=== PATIENT | female | born 1985 | race Caucasian/White ===

== ENCOUNTER → 2016-07-17 | Outpatient (CLI) | payer OTHER ==
[2016-07-17 12:46] LABS: CHCM 34.4; HCT 33.7 % (34.0-46.0); HDW 2.71; HGB 11.6 gm/dL (11.4-16.0); MCH 32.1 pg (25.0-35.0); MCHC 34.2 g/dL (31.0-37.0); MCV 93.7 fL (80.0-100.0); Mean Platelet Volume 8.5; RDW 13.5 % (11.5-15.5); WBC 9.1 k/uL (3.8-10.6)
[2016-07-17 12:59] LABS: Non-African American GFR(MDRD) >60 (>60 ml/min/1.73 sqM)
[2016-07-17 13:30] LABS: Hepatitis B Surface Ag Index 0.05
[2016-07-19 04:39] LABS: HIV-1/HIV-2 Ab Screen NONREAC (NON REAC)
== END | disposition home or self-care (01) ==
LOC: LABWHC1 11:31
PROVIDERS: ATTEND Obstetrics & Gynecology
DX: O26.812 Pregnancy related exhaustion and fatigue, second trimester (principal); Z3A.00 Weeks of gestation of pregnancy not specified
CPT/HCPCS: 36415; 82565; 82950; 85027; 86762; 86780; 86850; 86900; 86901; 87340; 87389

== ENCOUNTER 2016-08-18 16:52 | Outpatient (CLI) | payer OTHER | END 2016-08-18 17:55 | disposition home or self-care (01) | LOC: FBPOP 16:52 | PROVIDERS: ATTEND Obstetrics & Gynecology | DX: O26.93 Pregnancy related conditions, unspecified, third trimester (principal); Z3A.37 37 weeks gestation of pregnancy | CPT/HCPCS: 59025 ==

== ENCOUNTER 2016-08-19 22:40 | Inpatient (IN) | payer OTHER ==
[2016-08-20] MEDS ORDERED: CARBOPROST TROMETHAMINE 250 MCG/ML 1 ML AMP IM PRN (03:40)
[2016-08-20] MEDS ORDERED: METHYLERGONOVINE 0.2 MG/ML 1 ML AMP IM PRN (03:40)
[2016-08-20] MEDS ORDERED: BUTORPHANOL 1 MG/ML 1 ML VIAL IV PRN (03:40)
[2016-08-20] MEDS ORDERED: OXYTOCIN 10 UNIT/ML 1 ML VIAL IM PRN (03:40)
[2016-08-20] MEDS ORDERED: LIDOCAINE 1% (PF) 10 MG/ML (30 ML SDV) SQ PRN (03:40)
[2016-08-20] MEDS ORDERED: TERBUTALINE 1 MG/ML VIAL SQ PRN (03:40)
[2016-08-20 03:49] VITALS: BMI 31.9
[2016-08-20 03:51] LABS: Basophils % (A) 0 %; CH 32.1; CHCM 35.4; Eosinophils # (A) 0.2 k/uL (0-0.7); Eosinophils % (A) 1 %; HCT 35.9 % (34.0-46.0); HGB 12.5 gm/dL (11.4-16.0); Luc # (Auto) 0.33; Luc % (Auto) 2; Lymphocytes # (A) 1.8 k/uL (1.0-4.8); Lymphocytes % (A) 11 %; MCH 31.7 pg (25.0-35.0); MCHC 34.8 g/dL (31.0-37.0); MCV 91.1 fL (80.0-100.0); Mean Platelet Volume 10.2; Monocytes # (A) 0.5 k/uL (0-1.0); Monocytes % (A) 3 %; Neutrophils # (A) 12.8 k/uL (1.3-7.7); Neutrophils % (A) 82 %; RBC 3.94 m/uL (3.80-5.40); RDW 13.5 % (11.5-15.5); WBC 15.6 k/uL (3.8-10.6); WBC (Perox) 16.02
[2016-08-20] MEDS: LACTATED RINGERS 1,000 ML IV SCH ×3 (03:53→06:32)
--- NOTE | 2016-08-20 06:21 | P.HPOB ---
History of Present Illness H&P Date: 08/20/16 Chief Complaint: Contractions This patient is a 31-year-old 4 para 3 female estimated date of confinement 09/07/2016 estimated gestational age 37-2/7 weeks who presented to labor and delivery complaining of contractions. It was watched and over several hours did have cervical change and therefore thought to be in active labor. care is per Dr. Jiang and appears to be complicated by late to seek care at 24 weeks and some noncompliance with doing her blood work. Patient also has a history of a 22 week intrauterine demise secondary to placental abruption. She does have 2 living children as well. Review of Systems Constitutional: Denies chills, Denies fever Ears, nose, mouth and throat: Denies headache, Denies sore throat Cardiovascular: Denies chest pain, Denies shortness of breath Respiratory: Denies cough Gastrointestinal: Reports heartburn Genitourinary: Reports Menstruation: Reports amenorrhea Musculoskeletal: Denies myalgias Integumentary: Denies pruritus, Denies rash Neurological: Denies numbness, Denies weakness Past Medical History Past Medical History: No Reported History History of Any Multi-Drug Resistant Organisms: None Reported Past Surgical History: Orthopedic Surgery Additional Past Surgical History / Comment(s): KNEE-LEFT Past Anesthesia/Blood Transfusion Reactions: No Reported Reaction Past Psychological History: No Psychological Hx Reported Smoking Status: Current every day smoker Past Alcohol Use History: None Reported Past Drug Use History: None Reported - Past Family History Father Family Medical History: No Reported History Medications and Allergies Home Medications Medication Instructions Recorded Confirmed Type Ranitidine HCl [Zantac] 150 mg PO HS PRN 08/18/16 08/19/16 History Allergies Allergy/AdvReac Type Severity Reaction Status Date / Time Penicillins Allergy Rash/Hives Verified 08/19/16 22:49 Exam - Vital Signs Vital signs: Vital Signs Temp Pulse Resp BP 08/19/16 22:56 98.3 F 89 18 131/62 Intake and Output 08/19/16 08/19/16 08/20/16 14:59 22:59 06:59 Other: Weight 76.657 kg 76.657 kg Patient Weight 08/20/16 06:59 Weight 76.657 kg - OBG Physical Exam Abdomen: bowel sounds normal, no diffuse tenderness, no bruit present, no guarding noted, no hepatomegaly, no splenomegaly, no mass Vulva: both: normal Vagina: normal moisture, no discharge Cervix: Cervix is 5-6 cm dilated 100% effaced. Uterus: enlarged (Fundal height is consistent with a term .) Results Blood type is A+. Result Diagrams: 08/20/16 03:40 Abnormal Lab Results - Last 24 Hours (Table) 08/20/16 Range/Units 03:40 WBC 15.6 H (3.8-10.6) k/uL Plt Count 138 L (150-450) k/uL Neutrophils # 12.8 H (1.3-7.7) k/uL Assessment and Plan (1) Third trimester Narrative/Plan: This is a-year-old 4 para 3 female 37-2/7 weeks gestation who is admitted to labor and delivery in active labor. I and is anticipate normal vaginal delivery. Patient apparently is up for adoption and bilingual social worker will be contacted. Status: Acute (2) Normal labor Status: Acute
[2016-08-20] MEDS ORDERED: BUPIVACAINE (PF) 0.25% 30 ML VIAL ONE (06:48)
[2016-08-20] MEDS ORDERED: fentaNYL (PF) 50 MCG/ML 5 ML AMP ONE (06:48)
[2016-08-20] MEDS ORDERED: SODIUM CHLORIDE 0.9% 100 ML BAG ONE (06:48)
[2016-08-20] MEDS ORDERED: OXYTOCIN 20 UNITS/1000 ML NS 1,000 ML IV SCH (09:44)
[2016-08-20] MEDS ORDERED: ZOLPIDEM 5 MG TAB PO PRN (11:17)
[2016-08-20] MEDS ORDERED: ACETAMINOPHEN TAB 325 MG TAB PO PRN (11:17)
[2016-08-20] MEDS ORDERED: diphenhydrAMINE 50 MG/ML 1 ML VIAL IVP PRN ×2 (11:17)
[2016-08-20] MEDS ORDERED: BENZOCAINE SPRAY 57GM TOPICAL PRN (11:17)
[2016-08-20] MEDS ORDERED: diphenhydrAMINE 25 MG CAP PO PRN (11:17)
[2016-08-20] MEDS ORDERED: SIMETHICONE 80 MG CHEWABLE PO PRN (11:17)
[2016-08-20] MEDS ORDERED: IBUPROFEN 600 MG TAB PO PRN (11:17)
[2016-08-20] MEDS ORDERED: WITCH HAZEL 1 EACH MED..PAD TOPICAL PRN (11:17)
[2016-08-20] MEDS ORDERED: Acetaminophen-Codeine 300-30mg TAB PO PRN ×2 (11:17)
[2016-08-20] MEDS ORDERED: HYDROCORTISONE 2.5% RECTAL CREAM 30 GM TUBE RECTAL PRN (11:17)
[2016-08-20] MEDS ORDERED: diphenhydrAMINE 50 MG CAP PO PRN (11:17)
[2016-08-20 11:47] VITALS: RESP 16
--- NOTE | 2016-08-20 17:06 | P.PROBDLV ---
Vaginal Delivery Note - . Vaginal Delivery Note: Breast complete and pushing with spontaneous vaginal delivery of a viable male over an intact perineum. Baby did deliver as I walked into the room. Once baby was delivered mouth nares were bulb suctioned and nursery personnel was present to assume care following clamping and cutting of the cord. Placenta was then delivered intact and Pitocin was added to the IV. Her scores were
[2016-08-20] MEDS: SENNOSIDES-DOCUSATE SODIUM 1 EACH TAB PO SCH (21:21)
[2016-08-21] MEDS: SENNOSIDES-DOCUSATE SODIUM 1 EACH TAB PO SCH (08:29)
[2016-08-21 09:30] LABS: Basophils % (A) 0 %; CH 32.3; CHCM 36.6; Eosinophils # (A) 0.2 k/uL (0-0.7); Eosinophils % (A) 2 %; HCT 33.8 % (34.0-46.0); HDW 2.96; HGB 12.1 gm/dL (11.4-16.0); Luc # (Auto) 0.35; Luc % (Auto) 3; Lymphocytes # (A) 1.7 k/uL (1.0-4.8); Lymphocytes % (A) 15 %; MCH 31.8 pg (25.0-35.0); MCHC 35.7 g/dL (31.0-37.0); Mean Platelet Volume 10.6; Monocytes # (A) 0.5 k/uL (0-1.0); Monocytes % (A) 5 %; Neutrophils # (A) 8.7 k/uL (1.3-7.7); Neutrophils % (A) 76 %; RDW 13.3 % (11.5-15.5); WBC 11.5 k/uL (3.8-10.6); WBC (Perox) 11.98
[2016-08-21 12:21] VITALS: BP 119/65; PULSE 87; TEMP 98.5
--- NOTE | 2016-08-21 12:24 | P.DS ---
Providers Date of admission: 08/20/16 03:39 Expected date of discharge: 08/21/16 Attending physician: Jose Jiang Primary care physician: Jose Jiang Hospital Course: Susan is doing very well day 1. She is involuting, voiding, and she is tolerating her diet. She voices no complaint. Vital signs are stable and afebrile. Heart regular, lungs clear, extremities without pain. Abdomen is soft uterus is firm and lochia is reported be light. Assessment day 1. Plan discharged home follow up with me in 4 weeks. We'll plan schedule first 2 ligation following that visit. All the questions are answered for her at this time discharge instructions reviewed and she requests nothing for pain to home with. Patient Condition at Discharge: Good Plan - Discharge Summary New Discharge Prescriptions: No Action Ranitidine HCl [Zantac] 150 mg PO HS PRN PRN Reason: acid reflux Discharge Medication List Ranitidine HCl [Zantac] 150 mg PO HS PRN 08/18/16 [History] Follow up Appointment(s)/Referral(s): Jose Jiang DO [Primary Care Provider] - 4 Weeks Activity/Diet/Wound Care/Special Instructions: No heavy lifting, limit stairs and driving, and pelvic rest. If any high temperatures, heavy bleeding, or severe pain call my office Discharge Disposition: HOME SELF-CARE
== END 2016-08-21 16:57 | disposition home or self-care (01) | DRG 775 ==
LOC: FBPOP 22:40 → 4FBP 08-20 03:39
PROVIDERS: ADMIT Obstetrics & Gynecology; ATTEND Obstetrics & Gynecology
PROC: 10E0XZZ Delivery of Products of Conception, External Approach (ICD-10-PCS; principal; 2016-08-20)
DX: O99.334 Smoking (tobacco) complicating childbirth (principal); Z37.0 Single live birth; Z3A.37 37 weeks gestation of pregnancy
CPT/HCPCS: 59025; 85025; 88307; 99213

== ENCOUNTER 2023-04-27 05:47 | Inpatient (IN) | payer OTHER ==
[2023-04-27] MEDS ORDERED: CARBOPROST TROMETHAMINE 250 MCG/ML 1 ML AMP IM PRN (05:59)
[2023-04-27] MEDS ORDERED: LIDOCAINE 0.5% (PF) 5 MG/ML (50 ML SDV) SQ PRN (05:59)
[2023-04-27] MEDS ORDERED: METHYLERGONOVINE 0.2 MG/ML 1 ML AMP IM PRN (05:59)
[2023-04-27] MEDS ORDERED: OXYTOCIN 10 UNIT/ML 1 ML VIAL IM PRN (05:59)
[2023-04-27] MEDS ORDERED: TERBUTALINE 1 MG/ML VIAL SQ PRN (05:59)
[2023-04-27] MEDS ORDERED: TRANEXAMIC 1,000 MG/100ML-NACL 1,000 MG in EMPTY BAG 1 BAG IV PRN (05:59)
[2023-04-27] MEDS ORDERED: miSOPROStoL 200 MCG TAB PO PRN (05:59)
[2023-04-27] MEDS: LACTATED RINGERS 1,000 ML IV SCH (06:13)
[2023-04-27] MEDS: OXYTOCIN 30 UNITS/500 ML NS 30 UNIT in SALINE 1 500ML.BAG IV SCH (06:14)
[2023-04-27 06:27] LABS: Basophils % (A) 0 %; Eosinophils # (A) 0.1 k/uL (0-0.7); Eosinophils % (A) 1 %; HCT 35.6 % (34.0-46.0); HGB 12.4 gm/dL (11.4-16.0); Lymphocytes # (A) 1.4 k/uL (1.0-4.8); Lymphocytes % (A) 20 %; MCH 30.7 pg (25.0-35.0); MCHC 34.8 g/dL (31.0-37.0); MCV 88.3 fL (80.0-100.0); Mean Platelet Volume 11.5; Monocytes # (A) 0.2 k/uL (0-1.0); Monocytes % (A) 3 %; Neutrophils % (A) 73 %; Platelet Count 168 k/uL (150-450); RBC 4.03 m/uL (3.80-5.40); RDW 13.2 % (11.5-15.5); WBC 6.9 k/uL (3.8-10.6)
[2023-04-27 06:29] VITALS: RESP 16
[2023-04-27 06:55] LABS: Amphetamine Screen,Urine Not Detected (NotDetected); Barbiturate Screen,Urine Not Detected (NotDetected); Benzodiazepines Screen,Urine Not Detected (NotDetected); Cocaine Screen,Urine Not Detected (NotDetected); Methadone Screen, Urine Not Detected (NotDetected); Opiate Screen,Urine Not Detected (NotDetected); Oxycodone Screen, Urine Not Detected (NotDetected); Phencyclidine Screen,Urine Not Detected (NotDetected); Tricyclic Antidepressant,Urine Not Detected (NotDetected); Urn Cannabinoid Scrn Detected (NotDetected)
[2023-04-27 07:33] LABS: Large Platelets Present
--- NOTE | 2023-04-27 08:50 | P.HPOB ---
History of Present Illness H&P Date: 04/27/23 Chief Complaint: Induction of labor Ms. Gant is a 37 year old at 39 weeks and 0 days gestation with EDC of 05/04/2023 by 7 week who presents to labor and delivery for medical induction of labor. The patient failed her 1 hour GTT at 36 weeks and did not have time to complete a 3 hour GTT. She was given a prescription for supplies to test her blood sugars QID at home, however she was not able to afford these supplies. Random blood sugars have been in the 100-110 range in the office over the past 2 weeks. The patient is also advanced maternal age. Of note, this baby is up for adoption to her close friend who has adopted one of her other children. Obstetric history: 3 FTVD without complications, 1 IUFD at 22 weeks 2/2 placental abruption. 1 of her children was adopted by her best friend and she plans for the same friend to adopt this . work-up: blood type A positive, antibody screen negative, rubella immune, VDRL non-reactive, HBsAg negative, HIV negative, HCV Ab negative, gonorrhea negative, chlamydia negative, 1 hour GTT elevated at 155, GBS negative. Past Medical History Past Medical History: No Reported History History of Any Multi-Drug Resistant Organisms: None Reported Past Surgical History: Orthopedic Surgery Additional Past Surgical History / Comment(s): KNEE-LEFT Past Anesthesia/Blood Transfusion Reactions: No Reported Reaction Past Psychological History: No Psychological Hx Reported Smoking Status: Vaper Past Alcohol Use History: None Reported Past Drug Use History: None Reported - Past Family History Father Family Medical History: No Reported History Medications and Allergies Home Medications Medication Instructions Recorded Confirmed Type No Known Home Medications 04/27/23 04/27/23 History Allergies Allergy/AdvReac Type Severity Reaction Status Date / Time metronidazole Allergy Itching Verified 04/27/23 05:58 Penicillins Allergy Rash/Hives Verified 04/27/23 05:58 Exam Vital Signs Temp Pulse Resp BP 04/27/23 05:57 97.1 F L 80 16 123/69 Intake and Output 04/26/23 04/27/23 04/27/23 22:59 06:59 14:59 Other: # Voids 1 Weight 73.482 kg Focused physical exam is performed. This is a healthy-appearing in no apparent distress. Breathing is non-labored. Abdomen is gravid and non-tender. Cervical exam is 2.5 cm, 70 effacement, -3 station. AROM is undertaken with clear fluid noted. Extremities non-tender and non-edematous. heart tones are Category I and tocometer is graphing contractions every 2-4 minutes. Results Result Diagrams: 04/27/23 06:15 Abnormal Lab Results - Last 24 Hours (Table) 04/27/23 Range/Units 06:00 U Marijuana (THC) Screen Detected H (NotDetected) Assessment and Plan Assessment: 37 year old at 39 weeks and 0 days gestation presenting for medical induction of labor Plan: Admit, clear liquid diet, pitocin per protocol, s/p AROM, continuous EFM and tocometer, close monitoring of patient. Epidural prn. Anticipate vaginal delivery. Time with Patient: Less than 30
[2023-04-27] MEDS ORDERED: BENZOCAINE/MENTHOL SPRAY 1 GM/SPRAY AEROSOL TOPICAL PRN (12:55)
[2023-04-27] MEDS ORDERED: diphenhydrAMINE 25 MG CAP PO PRN (12:55)
[2023-04-27] MEDS ORDERED: SIMETHICONE 80 MG CHEWABLE PO PRN (12:55)
[2023-04-27] MEDS ORDERED: ZOLPIDEM 5 MG TAB PO PRN (12:55)
[2023-04-27] MEDS ORDERED: ACETAMINOPHEN TAB 325 MG TAB PO PRN (12:55)
[2023-04-27] MEDS ORDERED: HYDROCORTISONE 2.5% RECTAL CREAM 30 GM TUBE RECTAL PRN (12:55)
[2023-04-27] MEDS ORDERED: LANOLIN CREAM 5 GM TUBE TOPICAL PRN (12:55)
[2023-04-27] MEDS ORDERED: diphenhydrAMINE 50 MG/ML 1 ML VIAL IVP PRN ×2 (12:55)
--- NOTE | 2023-04-27 12:55 | P.PROBDLV ---
Vaginal Delivery Note - . Vaginal Delivery Note: DATE OF SERVICE: 04/27/2023 PROCEDURE: Normal Vaginal Delivery ATTENDING: Dr. Yaquelin Souza MD ESTIMATED BLOOD LOSS: 100 mL FINDINGS: VFI, Apgars 9/9. Weight 2865 PROCEDURE: Ms. Gant is a 37 year old at << >> weeks presenting to labor and delivery for medical induction of labor. The has been complicated by very late care, failed 1 hour GTT followed by non-compliance in completing the 3 hour GTT. For further details, please review the admitting H&P. Pitocin was started per protocol. AROM was undertaken revealing clear amniotic fluid at 835. The patient received epidural anesthesia per her request. The patient had Category II heart tones secondary to precipitous cervical dilation. The patient was completely dilated at 1237. With two pushes a viable female infant was delivered at 1241. The was placed on the maternal abdomen and bulb suctioned. The infant was noted to be spontaneously crying. Cord was clamped and cut after a 30-second delay. The was handed off to the pediatric team. Placenta was delivered whole with gentle cord traction at 1243. Oxytocin was started to facilitate uterine tone. Uterine fundus was found to be firm and below the umbilicus upon fundal massage. Thorough examination of the cervix, vagina, periurethral area, and perineum revealed no lacerations. The patient is stable and allowed to begin the bonding process.
[2023-04-27] MEDS: IBUPROFEN 600 MG TAB PO PRN (13:11)
[2023-04-27] MEDS: ROPIVACAINE 225 MG, fentaNYL (PF). 450 MCG in SODIUM CHLORIDE 0.9% 171 ML EPIDURAL ONE (13:55)
[2023-04-27] MEDS: diphenhydrAMINE 50 MG CAP PO PRN (20:15)
[2023-04-27] MEDS: SENNOSIDES-DOCUSATE SODIUM 1 EACH TAB PO SCH (22:29)
[2023-04-28 07:18] LABS: Basophils % (A) 0 %; Eosinophils # (A) 0.1 k/uL (0-0.7); Eosinophils % (A) 1 %; HCT 33.4 % (34.0-46.0); HGB 11.4 gm/dL (11.4-16.0); Lymphocytes # (A) 1.6 k/uL (1.0-4.8); Lymphocytes % (A) 15 %; MCH 30.4 pg (25.0-35.0); MCHC 34.1 g/dL (31.0-37.0); MCV 89.3 fL (80.0-100.0); Mean Platelet Volume 11.3; Monocytes # (A) 0.4 k/uL (0-1.0); Monocytes % (A) 4 %; Neutrophils # (A) 8.1 k/uL (1.3-7.7); Neutrophils % (A) 78 %; Platelet Count 146 k/uL (150-450); RBC 3.75 m/uL (3.80-5.40); RDW 13.7 % (11.5-15.5); WBC 10.4 k/uL (3.8-10.6)
[2023-04-28 08:19] VITALS: BP 123/84; PULSE 94; TEMP 97.9
--- NOTE | 2023-04-28 08:46 | P.DS ---
Providers Date of admission: 04/27/23 05:47 Expected date of discharge: 04/28/23 Attending physician: Yaquelin Souza MD Primary care physician: [facility] Course: Ms. Gant is a 37 year old now PPD#1 s/p normal vaginal delivery after induction of labor. The patient is doing well this morning and had no acute events overnight. She has no complaints this morning. She reports minimal lochia, passing flatus, voiding without difficulty, ambulating, and eating/drinking without nausea or vomiting. Infant doing well at bedside. She denies chest pain, shortness of breathing, fevers, or chills overnight. She denies pain or swelling in the legs. restrictions are reviewed with the patient including pelvic rest for 6 weeks. The patient is encouraged to call the office if she experiences any heavy bleeding, foul-smelling discharge, breast complaints, or any if she has any other concerns. She will follow up in the office in 6 weeks for exam. She requests Motrin be sent to her pharmacy. All questions are answered. Assessment: 37 year old now PPD#1 s/p normal vaginal delivery Patient Condition at Discharge: Good Plan - Discharge Summary New Discharge Prescriptions: New Ibuprofen [Motrin] 600 mg PO Q6HR PRN #30 tab PRN Reason: Mild Pain (Scale 1 To 3) Discharge Medication List Ibuprofen [Motrin] 600 mg PO Q6HR PRN #30 tab 04/28/23 [Rx] Follow up Appointment(s)/Referral(s): Yaquelin Souza MD [STAFF PHYSICIAN] - 6 Weeks Activity/Diet/Wound Care/Special Instructions: Instructions 1. Do not begin any exercise program for 3 weeks. 2. Do not resume sexual relations for 6 weeks or longer if uncomfortable. 3. You may take tub baths or showers at any time. 4. You may use tampons if desired after 6 weeks. 5. Keep any areas repaired with stitches clean and dry. 6. If you are not nursing, wear a good fitting, supportive bra during the day and limit fluid intake for at least 1 week to prevent breast engorgement. 7. Call the office, , within the next week to make appointment for your 6 week checkup if it has not already been made. 8. Report any of the following occurrences to the doctor promptly: a. Heavy, excessive bleeding b. Chills, fever c. Burning or frequency of urination d. Pain or redness and breasts if nursing e. Increasing pain or swelling of vulva (stitches). Discharge Disposition: HOME SELF-CARE
== END 2023-04-28 16:30 | disposition home or self-care (01) | DRG 807 ==
LOC: 4FBP 05:47
PROVIDERS: ADMIT Obstetrics & Gynecology; ATTEND Obstetrics & Gynecology
PROC: 3E033VJ Introduction of Other Hormone into Peripheral Vein, Percutaneous Approach (ICD-10-PCS; principal; 2023-04-27)
PROC: 10907ZC Drainage of Amniotic Fluid, Therapeutic from Products of Conception, Via Natural or Artificial Opening (ICD-10-PCS; principal; 2023-04-27)
PROC: 10E0XZZ Delivery of Products of Conception, External Approach (ICD-10-PCS; principal; 2023-04-27)
DX: O62.3 Precipitate labor (principal); Z37.0 Single live birth; O99.334 Smoking (tobacco) complicating childbirth; F17.290 Nicotine dependence, other tobacco product, uncomplicated; Z91.148 Patient's other noncompliance with medication regimen for other reason; Z28.310 Unvaccinated for COVID-19; Z3A.39 39 weeks gestation of pregnancy
CPT/HCPCS: 80306; 85025; 86850; 86900; 86901